=== PATIENT | male | born 1995 | race Caucasian/White ===

== ENCOUNTER → 2021-09-27 | Day surgery (SDC) | payer BC ==
[2021-09-25 09:45] LABS: BASOPHILS # (AUTO) 0.1 (0.0-0.1); BASOPHILS % 1.2 % (0.0-1.0); EOSINOPHILS # (AUTO) 0.3 (0.0-0.4); EOSINOPHILS % 4.1 % (0.0-6.0); HEMATOCRIT 43.7 % (38.2-49.6); HEMOGLOBIN 15.3 g/dL (14.0-18.0); LYMPHOCYTES # (AUTO) 3.1 (1.0-3.2); LYMPHOCYTES % 39.7 % (18.0-39.1); MEAN CORPUSCULAR HEMOGLOBIN 30.7 pg (28-32); MEAN CORPUSCULAR VOLUME 87.6 fL (81-99); MONOCYTES # (AUTO) 0.5 (0.2-0.8); NEUTROPHILS # (AUTO) 3.7 (2.1-6.9); NEUTROPHILS % 47.6 % (38.7-80.0); PLATELET COUNT 275 x10e3/uL (140-360); RED BLOOD COUNT 4.99 x10e6/uL (4.3-5.7); RED CELL DISTRIBUTION WIDTH 12.7 % (11.7-14.4)
[~2021-09-27] MED LIST: SERTRALINE HCL100 MG PO; TEMAZEPAM15 MG PO
[2021-09-27 09:30] VITALS: BP 111/84
== END | disposition home or self-care (01) ==
LOC: OR 06:28
PROVIDERS: ATTEND Surgery
DX: K92.1 Melena (principal); K64.8 Other hemorrhoids; F41.9 Anxiety disorder, unspecified; Z01.812 Encounter for preprocedural laboratory examination; Z20.822 Contact with and (suspected) exposure to COVID-19; Z79.899 Other long term (current) drug therapy
CPT/HCPCS: 36415; 45378; 85025; U0002

== ENCOUNTER 2021-10-15 10:16 | Observation (INO) | payer BC ==
[~2021-10-15] VITALS: Ht 170.2 cm; Wt 87.5 kg
[2021-10-15] MEDS ORDERED: LIDOCAINE 1% W/EPINEPHRINE 20 ML VIAL ONE (11:30)
[2021-10-15] MEDS ORDERED: LIDOCAINE HCL 2% JELLY 5 ML TUBE ONE (11:30)
[2021-10-15] MEDS ORDERED: BUPIVACAINE 0.25% 30ML SDV ONE (11:30)
[2021-10-15] MEDS ORDERED: BUPIVACAINE LIPOSOME/PF 266 MG/20 ML IJ ONE (11:30)
[2021-10-15] MEDS ORDERED: FENTANYL CITRATE/PF 100MCG/2 ML INJ ONE (12:22)
[2021-10-15] MEDS ORDERED: MIDAZOLAM HCL 2 MG/2 ML VIAL ONE (12:22)
[2021-10-15] MEDS ORDERED: KETOROLAC TROMETHAMINE 30 MG/ML VIAL ONE (13:36)
[2021-10-15] MEDS ORDERED: ONDANSETRON HCL INJ 2MG/ML 2ML 2 MG/ML VIAL ONE (13:36)
[2021-10-15] MEDS ORDERED: LIDOCAINE HCL 2% LOCAL INJ 5 ML SDV VIAL INJ ONE (13:36)
[2021-10-15] MEDS ORDERED: DEXAMETHASONE SOD PHOS INJ 4 MG/ML SDV ONE (13:36)
[2021-10-15] MEDS ORDERED: PROPOFOL IV EMULSION 10 MG/ML 20 ML VIAL ONE (13:36)
[2021-10-15] MEDS ORDERED: POVIDONE IODINE 0.05% 0.05 % ML PO ONE (13:36)
[2021-10-15] MEDS ORDERED: SEVOFLURANE INHAL SOLN 250 ML PEN BTL ONE (13:36)
[2021-10-15] MEDS ORDERED: KETOROLAC TROMETHAMINE 30 MG/ML VIAL IV PRN (13:45)
[2021-10-15] MEDS ORDERED: NALOXONE HCL INJ 0.4 MG/ML AMP IV PRN (13:45)
[2021-10-15] MEDS: HYDROMORPHONE 0.2MG/ML-SOD CHL 30ML PCA SYRINGE IV PRN ×2 (13:53→23:59)
[2021-10-15 16:24] VITALS: BP 108/66
[2021-10-15] MEDS: SODIUM CHLORIDE 0.9% 1000ML 1,000 ML IV SCH (16:26)
[2021-10-15] MEDS: SERTRALINE HCL 100 MG TAB PO SCH (16:26)
[2021-10-15 16:30] VITALS: BP 108/66
[2021-10-15] MEDS: Cefoxitin 1 GM in SODIUM CHLORIDE 0.9% 50ML 50 ML IV SCH ×2 (17:13→23:26)
[2021-10-15] MEDS: ONDANSETRON HCL INJ 2MG/ML 2ML 2 MG/ML VIAL IV PRN (17:18)
[2021-10-15 20:00] VITALS: BP 110/76
[2021-10-15 20:49] VITALS: BP 110/76
[2021-10-15] MEDS ORDERED: TEMAZEPAM 15 MG CAP PO SCH (21:00)
[2021-10-16] VITALS (7 sets, daily range): BP systolic 113–133; BP diastolic 68–81
[2021-10-16] MEDS: SODIUM CHLORIDE 0.9% 1000ML 1,000 ML IV SCH ×2 (03:18→13:18)
[2021-10-16] MEDS: ONDANSETRON HCL INJ 2MG/ML 2ML 2 MG/ML VIAL IV PRN ×3 (03:54→23:03)
[2021-10-16 05:29] LABS: BASOPHILS % 0.3 % (0.0-1.0); EOSINOPHILS % 0.1 % (0.0-6.0); HEMATOCRIT 37.6 % (38.2-49.6); HEMOGLOBIN 13.2 g/dL (14.0-18.0); LYMPHOCYTES # (AUTO) 1.3 (1.0-3.2); LYMPHOCYTES % 12.1 % (18.0-39.1); MEAN CORPUSCULAR HGB CONC 35.1 g/dL (31-35); MONOCYTES # (AUTO) 0.5 (0.2-0.8); MONOCYTES % 4.6 % (4.4-11.3); NEUTROPHILS # (AUTO) 8.9 (2.1-6.9); NEUTROPHILS % 82.7 % (38.7-80.0); PLATELET COUNT 278 x10e3/uL (140-360); RED BLOOD COUNT 4.13 x10e6/uL (4.3-5.7)
[2021-10-16 05:41] LABS: ANION GAP 13.3 mmol/L (8-16); CREATININE, SERUM 0.91 mg/dL (0.72-1.25); POTASSIUM 4.3 mmol/L (3.5-5.1)
[2021-10-16] MEDS: SERTRALINE HCL 100 MG TAB PO SCH ×2 (09:00→16:52)
[2021-10-16] MEDS: HYDROMORPHONE 0.2MG/ML-SOD CHL 30ML PCA SYRINGE IV PRN ×2 (09:29→16:49)
[2021-10-16] MEDS ORDERED: HYDROMORPHONE 0.2MG/ML-SOD CHL 30ML PCA SYRINGE IV PRN (18:15)
[2021-10-17] VITALS: BP 131/86
[2021-10-17] MEDS: SODIUM CHLORIDE 0.9% 1000ML 1,000 ML IV SCH (03:12)
[2021-10-17 04:00] VITALS: BP 126/83
[2021-10-17 07:33] VITALS: BP 120/84
[2021-10-17 08:43] VITALS: BP 120/84
[2021-10-17] MEDS: SERTRALINE HCL 100 MG TAB PO SCH (09:31)
[2021-10-17 11:23] VITALS: BP 125/90
== END 2021-10-17 13:40 | disposition home or self-care (01) ==
LOC: OR 10:16 → PACU V 13:40 → MED/SURG 15:10
PROVIDERS: ADMIT Surgery; ATTEND Surgery
DX: K64.8 Other hemorrhoids (principal); Z20.822 Contact with and (suspected) exposure to COVID-19; E66.9 Obesity, unspecified; Z68.30 Body mass index [BMI] 30.0-30.9, adult; Z01.818 Encounter for other preprocedural examination
CPT/HCPCS: 36415; 46260; 46700; 80048; 85025; 88304; G0378 ×3; J0694; J1100; J1885; J2001 ×2; J2250; J2405 ×2; J2704; J3010; J7030 ×3; U0002